=== PATIENT | male | born 2005 | race Caucasian/White ===

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

== ENCOUNTER 2023-10-30 23:38 | Emergency (ER) | payer MEDICAID, OTHER ==
[2023-10-31 00:38] VITALS: TEMP 98.6
--- NOTE | 2023-10-31 00:46 | ERPHSYRPT ---
- History of Present Illness Time Seen by Provider: 10/31/23 00:27 Historian: patient Exam Limitations: no limitations Patient Subjective Stated Complaint: pt has been having intermittent chest pain x2 weeks Triage Nursing Assessment: pt ambulatory to bed by self with steady gait, pt alert and oriented x3, skin pwd, pt has no complaints at this time, pt has been experiencing chest pain intermittent the last 2 weeks, pt has no pain currently and no cardiac medical hx, pt states "It might be acid reflux because earlier tonight when I was eating mozamb[place] food, my chest hurt." lung sounds clear througout, pulse regular and strong. Physician History: 18 years old healthy male presented in the ER with complains of intermittent substernal chest pain for the last couple of weeks. Patient reports mild to moderate intensity dull aching pain without any significant aggravating or relieving factors, last for 15 to 20 minutes and improved on its own without associated palpitations or shortness of breath. Denies any recent fever chills or cough. No known sick contact. Patient reports having pain earlier and currently chest pain-free. No history of GERD symptoms. Nitro Today/Relief: no nitro taken today Aspirin Treatment Today: no aspirin today Allergies/Adverse Reactions: azithromycin [From Zithromax] Allergy (Unknown, Verified 10/31/23 00:21) cefaclor [From Ceclor] Allergy (Unknown, Verified 10/31/23 00:21) Home Medications: No Reportable Medications [No Reported Medications] 10/31/23 [History] Hx Tetanus, Diphtheria Vaccination/Date Given: Yes Hx Influenza Vaccination/Date Given: No Hx Pneumococcal Vaccination/Date Given: No Immunizations Up to Date: No Travel Risk - International Travel Have you traveled outside of the country in past 3 weeks: No - Coronavirus Screening Are you exhibiting any of the following symptoms?: No Close contact with a COVID-19 positive Pt in past 14-21 Days: No - Vaccine Status Have you recieved a Covid-19 vaccination: No - Review of Systems Constitutional: No Symptoms Eyes: No Symptoms Ears, Nose, & Throat: No Symptoms Respiratory: No Symptoms Cardiac: Chest Pain Abdominal/Gastrointestinal: No Symptoms Genitourinary Symptoms: No Symptoms Musculoskeletal: No Symptoms Skin: No Symptoms Neurological: No Symptoms Psychological: No Symptoms Endocrine: No Symptoms Hematologic/Lymphatic: No Symptoms - Past Medical History Pertinent Past Medical History: Yes Neurological History: No Pertinent History ENT History: No Pertinent History Cardiac History: No Pertinent History Respiratory History: Asthma Endocrine Medical History: No Pertinent History Musculoskeletal History: No Pertinent History GI Medical History: No Pertinent History History: No Pertinent History Psycho-Social History: No Pertinent History Male Reproductive Disorders: No Pertinent History Other Medical History: asthma as a child - Past Surgical History Past Surgical History: Yes Neuro Surgical History: No Pertinent History Cardiac: No Pertinent History Respiratory: No Pertinent History Gastrointestinal: No Pertinent History Genitourinary: No Pertinent History Musculoskeletal: No Pertinent History Male Surgical History: No Pertinent History Other Surgical History: tubes in ears - Social History Smoking Status: Never smoker How long have you smoked: vapes Exposure to second hand smoke: No Drug Use: none Patient Lives Alone: No Significant Family History: no pertinent family hx - Nursing Vital Signs Nursing Vital Signs: Initial Vital Signs Temperature 98.6 F 10/31/23 00:29 Pulse Rate 90 10/31/23 00:29 Respiratory Rate 18 10/31/23 00:29 Blood Pressure 119/68 10/31/23 00:29 O2 Sat by Pulse Oximetry 100 10/31/23 00:29 Pain Scale Pain Intensity 0 - Physical Exam General Appearance: no apparent distress, alert Eye Exam: PERRL/EOMI Ears, Nose, Throat Exam: normal ENT inspection Neck Exam: normal inspection, supple, full range of motion Respiratory Exam: normal breath sounds, lungs clear Cardiovascular Exam: regular rate/rhythm, normal heart sounds Gastrointestinal/Abdomen Exam: soft, normal bowel sounds, No tenderness Back Exam: normal inspection, normal range of motion Extremity Exam: normal inspection, normal range of motion Neurologic Exam: alert, oriented x 3, cooperative, supervisor hand workers II-XII nml as tested Skin Exam: normal color SpO2 Interpretation: normal SpO2: 100 O2 Delivery: Room Air - Course EKG Interpreted by Me: RATE ([id number]), Sinus Rhythm, NORMAL AXIS, NORMAL INTERVALS, NORMAL QRS Ordered Tests: Active Orders 24 hr Category Date Time Status Ecological Technical Officer STAT Care 10/31/23 00:37 Active EKG-ER Only STAT Care 10/31/23 00:37 Active CHEST 1 VIEW (PORTABLE) Stat Exams 10/31/23 00:37 Ordered CBC W DIFF Stat Lab 10/31/23 00:37 Ordered CMP Stat Lab 10/31/23 00:37 Ordered TROPONIN Q4H Lab 10/31/23 00:45 Ordered TROPONIN Q4H Lab 10/31/23 04:45 Ordered TROPONIN Q4H Lab 10/31/23 08:45 Ordered Medication Summary Discontinued Medications Generic Name Dose Route Start Last Admin Trade Name Fabian PRN Reason Stop Dose Admin Aspirin 324 mg 10/31/23 00:37 Aspirin 81 Mg Tab.Chew PO 10/31/23 00:38 STAT ONE - Progress Progress: improved Air Movement: good Progress Note: 10/31/23 02:31 18 years old is evaluated for intermittent chest pain for 2 weeks with no active chest pain currently. No palpitations or difficulty breathing. PERC negative. EKG is normal sinus rhythm with no acute ischemic changes. Negative troponins. Chest x-ray negative for any acute cardiopulmonary findings. Chemistries fairly unremarkable. Normal white count. With patient's symptoms going on for quite some time and being chest pain-free I do not think patient needs second troponin, he is low heart score, recommended outpatient follow-up. Discussed signs symptoms of worsening needing return to ER which he seems understanding. Blood Culture(s) Obtained: No Antibiotics given: No Counseled pt/family regarding: lab results, diagnosis, need for follow-up, rad results Medical Desision Making - Diagnostic Testing Diagnostic test were ordered, analyzed, and reviewed by me: Yes Radiological Interpretation: Interpreted by me, Reviewed by me - Departure Clinical Impression: Atypical chest pain Condition: Stable Critical Care Time: No Referrals: JADYN BUSBY [Primary Care Provider] - Follow up with PCP 1 day Instructions: Angina (DC), Chest Pain (DC) Additional Instructions: Take Tylenol/ibuprofen as needed for pain. Follow-up with primary care for reevaluation. Return to ER for worsening chest pain or if having difficulty breathing/palpitations etc.
[2023-10-31 00:55] LABS: Absolute Neutrophil Ct (ANC) 3.88 x10^3/uL (1.4-6.9); BASOPHIL % 0.5 % (0.0-0.4); Basophil (Absolute #) 0.04 x10^3/uL (0-0.4); Eosinophil % 4.6 % (0.00-5.0); Eosinophil (Absolute #) 0.37 x10^3/uL (0-0.5); Hematocrit 45.7 % (42-50); Hemoglobin 15.1 g/dL (12.5-18.0); IMMATURE GRAN # 0.02 x10^3u/L (0.00-0.03); IMMATURE GRAN % 0.3 % (0.00-0.4); Lymphocyte (Absolute #) 3.22 x10^3/uL (1.0-4.6); Lymphocytes % 40.3 % (24.0-44.0); Mean Cell Volume 89.8 fL (78-100); Mean Corpuscular Hemoglobin 29.7 pg (26-32); Mean Platelet Volume 9.4 fL (7.5-11.0); Monocyte (Absolute #) 0.46 x10^3/uL (0.0-1.3); Monocytes % 5.8 % (0.0-12.0); Neutrophil % 48.5 % (36.0-66.0); Platelet Count 300 x10^3/uL (150-450); Red Blood Count 5.09 x10^6/uL (4.1-5.6); Red Cell Distribution Width 12.3 % (11.5-14.0)
[2023-10-31] MEDS ORDERED: BABY ASPIRIN 81 MG CHEW ONE (00:58)
[2023-10-31] MEDS: BABY ASPIRIN 81 MG CHEW PO ONE (00:59)
[2023-10-31 01:09] VITALS: RESP 17; O2SAT 98
[2023-10-31 01:14] LABS: ALBUMIN 4.8 g/dL (3.5-5.0); ANION GAP 15.8 MEQ/L (5-15); BILIRUBIN,TOTAL 0.3 mg/dL (0.2-1.3); Calcium 9.6 mg/dL (8.4-10.2); Creatinine 1 0.9 mg/dL (0.66-1.25); EST GLOMERULAR FILTRATION RATE 125.4 ML/MIN; Potassium 4.1 mmol/L (3.5-5.1); Total Protein 7.4 g/dL (6.3-8.2)
[2023-10-31 01:29] VITALS: BP 123/77; PULSE 77
--- NOTE | 2023-10-31 08:48 | XRAY ---
Indication: Chest pain. Comparison: October 27, 2023 Portable chest again demonstrates normal heart, lungs, and bony thorax.
== END 2023-10-31 01:29 | disposition home or self-care (01) ==
LOC: ED 23:38
DX: R07.9 Chest pain, unspecified (principal)
CPT/HCPCS: 36415; 71045; 80053; 84484; 85025; 93005; 93041; 99284; A9270-GY